=== PATIENT | male | born 1965 | race Two or more races ===

== ENCOUNTER 2021-04-22 15:50 | Outpatient (CLI) | payer SELFPAY | END 2021-04-22 15:51 | disposition home or self-care (01) | LOC: LAB.N 15:50 | PROVIDERS: ATTEND Physician Assistant Medical | DX: Z01.84 Encounter for antibody response examination (principal); M79.10 Myalgia, unspecified site | CPT/HCPCS: 86769 ==

== ENCOUNTER 2023-06-17 18:21 | Emergency (ER) | payer MEDICAID, OTHER ==
[2023-06-17 18:34] VITALS: BP 159/91; O2SAT 98
--- NOTE | 2023-06-17 18:36 | ED Physician Documentation ---
History of Present Illness - Stated complaint Stated Complaint: FALL - Chief complaint Chief Complaint: Trauma Ext - Additonal information Additional information: 57-year-old male who is currently incarcerated at our [facility] facility presents to the ER for evaluation after he fell while descending the stairs. Officer reports that he fell about 6 stairs. No loss of consciousness. Patient reports that he tucked and rolled. He denies headache chest back or abdominal pain. He does have an abrasion and hematoma near his right elbow as well as pain on the dorsum of his left wrist. He ambulates without difficulty. Patient reports he has early Alzheimer's but is not currently taking any medication. Denies drug or alcohol use. Appears alert and oriented to person place and time. Review of Systems Constitutional: denies: Fever Ears: reports: Reviewed and negative Cardiac: reports: Reviewed and negative Respiratory: reports: Reviewed and negative GI: reports: Reviewed and negative Skin: reports: Abrasion (s) Musculoskeletal: reports: Joint pain Neurologic: reports: Reviewed and negative PD PAST MEDICAL HISTORY - Present Medications Home Medications: Ambulatory Orders Medication Instructions Recorded Confirmed No Known Home Medications 06/17/23 06/17/23 - Allergies Allergies/Adverse Reactions: Allergies Allergy/AdvReac Type Severity Reaction Status Date / Time No Known Drug Allergies Allergy Verified 06/17/23 18:27 - Social History Does the pt smoke?: No Smoking Status: Never smoker PD ED PE NORMAL - General General: Alert and oriented X 3, No acute distress, Well developed/nourished - HEENT HEENT: Atraumatic, Ears normal, Moist mucous membranes, Other (Negative for hemotympanums, raccoon eyes, franks sign.) - Neck Neck: Supple, no meningeal sign, No adenopathy, C-Spine cleared by NEXUS criteria, Other (No midline cervical tenderness elicited. Full range of motion of the neck. No pain with axial loading.) - Cardiac Cardiac: RRR, No murmur - Respiratory Respiratory: No respiratory distress - Abdomen Abdomen: Normal bowel sounds, Soft - Back Back: No CVA TTP, No spinal TTP (No tenderness elicited with palpation of the cervical thoracic or lumbar spinous bodies. No abrasions or ecchymosis noted. Normal gait though shackled. No paresthesias of the lower extremities) - Derm Derm: Normal color, Warm and dry. No: No rash (An abrasion with mild ecchymosis of the right elbow near the olecranon. Normal pronation and supination. Normal flexion and extension. 2+ radial pulse) - Extremities Extremities: No deformity, Normal ROM s pain. No: No tenderness to palpate (Mild tenderness with palpation on the dorsum of the left wrist without obvious deformity ecchymosis or swelling. Negative anatomic snuffbox. Normal flexion extension. 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 Eye Opening: Spontaneous Motor: Obeys Commands Verbal: Oriented GCS Score: 15 Results - Vitals Vitals: Vital Signs - 24 hr 06/17/23 18:22 Temperature 36.7 C Heart Rate 86 Respiratory 15 Rate Blood Pressure 159/91 H O2 Saturation 98 Oxygen O2 Source Room air - Rads (name of study) right elbow Relevant Findings:: Final report received (No acute bony abnormality.) left wrist Relevant Findings:: Final report received (No displaced fractures are seen on plain film study.) PD Medical Decision Making - ED course Complexity details: reviewed results, re-evaluated patient, d/w patient ED course: 57-year-old male who is incarcerated at [facility] presents the emergency department after he fell down 6 stairs today at the [facility]. Did not strike his head or lose consciousness. Denies alcohol use. He is not anticoagulated. Patient presents with a superficial abrasion on the right elbow and reporting pain on the left wrist. Neurological exam is normal without any focal findings. I do not feel he would benefit from a CT of the head as my clinical suspicion for a subarachnoid hemorrhage, epidural hemorrhage or subdural are quite low. In addition patient has no clinical signs of basilar skull fracture. No midline tenderness was elicited with palpation of the cervical thoracic or sil mbar spine. I did obtain plain x-rays of the right elbow and left wrist given the reported pain and abrasion but interpretation by the radiologist as negative for acute fracture. Given the normal gait unremarkable vitals and otherwise benign clinical exam patient is discharged back to [facility] in stable condition. Departure - Departure Disposition: 01 Home, Self Care Clinical Impression: Fall down stairs Qualifiers: Encounter type: initial encounter Qualified Code(s): W10.8XXA - Fall (on) (from) other stairs and steps, initial encounter Contusion of right elbow Qualifiers: Encounter type: initial encounter Qualified Code(s): S50.01XA - Contusion of right elbow, initial encounter Left wrist sprain Qualifiers: Encounter type: initial encounter Qualified Code(s): S63.502A - Unspecified sprain of left wrist, initial encounter Comments: You are seen today in the emergency department after falling down the stairs at the [facility]. The x-ray imaging of the right elbow and left wrist showed no evidence of fractures. There was no pain elicited with palpation of your hips cervical thoracic or lumbar spine. You were walking normally. Your neurological function is normal. Given the history and exam and absence of alcohol or anticoagulation you would not benefit from a CT of the head. You can continue to reside at the [facility]. You should return immediately to the ER for any sudden severe headache, uncontrolled vomiting, slurred speech, facial droop or any other acute emergent concerns. Forms: PCP List
--- NOTE | 2023-06-17 19:01 | XRAY Report ---
PROCEDURE: Elbow 3 View RT INDICATIONS: fall down 6 stairs TECHNIQUE: 3 views of the elbow were acquired. COMPARISON: Correlation is made with the accompanying wrist plain films. FINDINGS: Bones: No fractures or dislocations. No suspicious bony lesions. Soft tissues: No effusion. No suspicious soft tissue calcifications or masses. IMPRESSION: No acute bony abnormality. No acute bony abnormality is seen by plain film. If there is focal tenderness (or other strong clinical concern for a fracture that is not seen on thi s plain film study) then please consider a dedicated CT for further evaluation. Reviewed by: Jorje Reyes MD on 06/17/2023 6:00 PM [facility] Approved by: Jorje Reyes MD on 06/17/2023 6:00 PM [facility] Station ID: [id number]
--- NOTE | 2023-06-17 19:03 | XRAY Report ---
PROCEDURE: Wrist 3 View LT INDICATIONS: fall down 6 stairs TECHNIQUE: 3 views of the wrist were acquired. COMPARISON: Correlation is made with the accompanying elbow plain films. FINDINGS: Bones: No fractures or dislocations. No suspicious bony lesions. Soft tissues: No suspicious soft tissue calcifications or masses. IMPRESSION: No displaced fractures are seen on this plain film study. In this patient with a given history of trauma, please correlate with focal tenderness. If clinically appropriate, please consider a short-term follow-up plain films series versus a dedicated CT study. Reviewed by: Jorje Reyes MD on 06/17/2023 6:[address] [facility] Approved by: Jorje Reyes MD on 06/17/2023 6:[address] [facility] Station ID: [id number]
== END 2023-06-17 19:33 | disposition home or self-care (01) ==
LOC: ED 18:21
DX: S63.502A Unspecified sprain of left wrist, initial encounter (principal); S50.01XA Contusion of right elbow, initial encounter; W10.9XXA Fall (on) (from) unspecified stairs and steps, initial encounter; Y93.01 Activity, walking, marching and hiking; Y92.148 Other place in prison as the place of occurrence of the external cause
CPT/HCPCS: 99283